=== PATIENT | female | born 1945 | race Caucasian/White ===

== ENCOUNTER 2017-01-05 09:39 | Emergency (ER) | payer MEDICARE, OTHER ==
[~2017-01-05] VITALS: Ht 152.4 cm; Wt 83.5 kg
[2017-01-05 09:41] VITALS: Ht 152.4 cm; Wt 83.5 kg
[2017-01-05] MEDS ORDERED: TRIA15OI9 TOP (09:57)
[2017-01-05] MEDS ORDERED: FAMO-96 PO (09:57)
[2017-01-05] MEDS ORDERED: BEN25 PO (09:57)
[2017-01-05] MEDS ORDERED: TRIA60LO10 TOP (10:01)
--- NOTE | 2017-01-05 10:08 | ERD ---
ER Documentation Chief Complaint Date/Time DATE: 01/05/17 TIME: 10:05 Chief Complaint pt bib family with c/o itching all over arms/chest since yesterday HPI Patient is a 71-year-old female brought in by family complaining of itchy rash to the bilateral upper extremity in the elbow folds in bilateral thighs that they first noted yesterday. There are no new irritants that they can think of including soaps, laundry detergents, etc. No fever. No swelling of lips or tongue. No medications have been taken ROS All systems reviewed and are negative except as per history of present illness. Medications Home Meds Active Scripts Triamcinolone Acetonide* (Kenalog*) 0.25%-60 Ml Lotion, 1 APPLIC TOP BID, #1 BOTTLE Prov:ERINN ORELLANA PA-C 01/05/17 Triamcinolone Acetonide (Triamcinolone Acetonide) 0.5% - 15 Gm Oint..gm., 1 APPLIC TOP BID, #60 GM Prov:ERINN ORELLANA PA-C 01/05/17 Famotidine* (Pepcid*) 20 Mg Tablet, 20 MG PO BID for 10 Days, TAB Prov:ERINN ORELLANA PA-C 01/05/17 Diphenhydramine Hcl* (Benadryl*) 25 Mg Cap, 25 MG PO Q6, #30 CAP Prov:ERINN ORELLANA PA-C 01/05/17 Allergies Allergies: Coded Allergies: No Known Allergy (Unverified , 01/05/17) FmHx Family History: diabetes Physical Exam Vitals Vital Signs Date Time Temp Pulse Resp B/P Pulse Ox O2 Delivery O2 Flow Rate FiO2 01/05/17 09:41 99.1 95 18 151/75 97 Physical Exam Const: [] Head: Atraumatic Eyes: Normal Conjunctiva ENT: Normal External Ears, Nose and Mouth. Neck: Full range of motion..~ No meningismus. Resp: Clear to auscultation bilaterally Cardio: Regular rate and rhythm, no murmurs Abd: Soft, non tender, non distended. Normal bowel sounds Skin: urticaria on Bilateral elbow folds and bilateral thighs, Procedures/MDM This is a 71-year-old female presents with allergic type rash. She is diabetic so it did not want to give her oral steroids so I gave her prescription for topical steroids as well as Pepcid and Benadryl. Patient counseled regarding my diagnostic impression and care plan. Prior to discharge all questions answered. Pt agrees with treatment plan and understands strict return precautions. Pt is instructed to follow up with primary care provider within 24- 48 hours. Precautionary instructions provided including instructions to return to the ER if not improving or for any worsening or changing symptoms or concerns. Departure Diagnosis: Primary Impression: Rash Condition: Stable Patient Instructions: Self-Care for Skin Rashes Additional Instructions: Call your primary care doctor TOMORROW for a SAME-DAY APPOINTMENT.Tell the school secretary that you were referred from this facility.Call again if your condition worsens before your appointment time. ERINN ORELLANA PA-C Jan 05, 2017 10:07
== END 2017-01-05 10:12 | disposition home or self-care (01) ==
LOC: FTE 09:39
DX: R21 Rash and other nonspecific skin eruption (principal)
CPT/HCPCS: 99283